=== PATIENT | female | born 1945 | race Caucasian/White ===

== ENCOUNTER 2017-09-22 19:33 | Emergency (ER) | payer MEDICARE, OTHER, SELFPAY ==
[2017-09-22 19:34] VITALS: BP 164/82; PULSE 87; RESP 20; TEMP 36.4; O2SAT 100; BMI 20.5
--- NOTE | 2017-09-22 19:48 | ED.VISSUMM ---
- ER Visit Summary Date of Service: 09/22/17 Chief Complaint: Nosebleed History of Present Illness: The patient is a 71 F presents to the emergency department with nosebleed. Patient has a history of COPD. She is on 2-1/2 L of nasal cannula at baseline. Over the past week, she has had 3 separate nosebleeds from the right naris. She states the first 2 were very slight and stopped almost immediately. Tonight, began to bleed. She held pressure but still had some bleeding. She does take a baby aspirin but no other anticoagulants. She has no other prior history of nosebleed. States up until today she felt fine. She has had no upper respiratory illness. She denies cough or shortness of breath. Physical Examination: Exam is relatively unremarkable. Patient does have active bleeding from Kiesselbach's plexus in the right nares. There is no evidence of posterior bleed. Oropharynx is widely patent. Neck supple. Heart regular. Lungs clear. Test Results: [] Emergency Department Course and Treatment: Afrin-soaked pledget was placed in the right nares. Compression was held for 15 minutes. I did reevaluate the area. I attempted silver nitrate cautery of the area of bleeding. I was unable to achieve hemostasis. Because of this, I did elect to place a 5.5 cm anterior Rhino Rocket. The patient did have good control bleeding initially with this. The patient was observed. She had no further bleeding. The patient was placed on Keflex and given outpatient ENT follow-up. She will return with any worsening bleeding. Treatment Plan: [] Disposition: Discharge Impression: 1. Epistaxis right naris with packing This note was generated with [employer] dictation software. It may contain incorrect words, spelling, and punctuation that were not noted in review of the chart prior to signing ED Disposition - Plan for ED Patient: Disposition: Home or Assisted Living Chief Complaint: Nosebleed Instructions: Nosebleed Prescriptions: Cephalexin [Keflex] 500 mg PO Q8 #15 cap Referrals: Hussein Orellana MD [STAFF PHYSICIAN] -
[2017-09-22 21:45] VITALS: PULSE 72; RESP 16; O2SAT 98
[2017-09-22] MEDS: Oxymetazoline 0.05% 1 SPRAY SPRAY.BTL 2 SPRAY NASAL (21:45)
[2017-09-22] MEDS: Silver Nitrate (BKC) 1 EACH TOPICAL (21:45)
== END 2017-09-22 21:47 | disposition home or self-care (01) ==
LOC: ED 19:56
PROVIDERS: Emergency Provider Emergency Medicine; Family Provider Internal Medicine; PCP Internal Medicine
DX: R04.0 Epistaxis (principal); J44.9 Chronic obstructive pulmonary disease, unspecified; I10 Essential (primary) hypertension; E78.00 Pure hypercholesterolemia, unspecified; F32.9 Major depressive disorder, single episode, unspecified; Z87.891 Personal history of nicotine dependence; Z79.82 Long term (current) use of aspirin; Z79.899 Other long term (current) drug therapy
CPT/HCPCS: 30903; 99281; A4216

== ENCOUNTER 2017-10-28 11:14 | Emergency (ER) | payer MEDICARE, OTHER, SELFPAY ==
[2017-10-28 11:16] VITALS: BP 189/99; PULSE 80; PULSE 82; RESP 14; TEMP 36.9; O2SAT 98; BMI 23.8
--- NOTE | 2017-10-28 11:25 | RAD_ITS ---
STUDY: X-RAY - RIGHT ANKLE REASON FOR EXAM: Female, 71 years old. Pain following a fall. TECHNIQUE: 3 view(s) of the ankle. COMPARISON: None. FINDINGS: Healed fracture of the distal fibula. Normal medial and lateral malleoli. Normal tibiotalar articulation and ankle mortise. Osteopenia. Normal visualized talus and calcaneus. The visualized subtalar, talonavicular, calcaneocuboid and tarsal articulations are normal. Soft tissue swelling overlying the lateral malleolus. No acute fractures seen. RAD/Ankle min 3 Views IMPRESSION: No acute abnormalities present. Electronically Signed: Gus Brito MD at 11:54 EDT Tel [phone], Service support ,
--- NOTE | 2017-10-28 11:29 | ED.VISSUMM ---
- ER Visit Summary Date of Service: 10/28/17 Chief Complaint: Injury right lower extremity History of Present Illness: The patient is a 71 F who presents after a mechanical fall. She normally needs assistance to ambulate. Her aide had not arrived or scheduled visit. She attempted to get up from her bed and walk to the restroom. She fell. Her only complaint is right foot pain. She has no other complaints. Please read written note Physical Examination: Vital signs are noted. There is no evidence of trauma to the head. She has no pain the patient cervical spine. Heart is regular without murmur, gallop or rub. S1 and S2 are normal. Lungs are clear to auscultation with good movement of air bilaterally. Logrolling of the right and left lower extremity causes no discomfort. She is able to flex at the hip and knee and extend 280? of the knee and flex to 90? on the right side. There is pain the patient of lateral malleolus with evidence of trauma. There is no pain the probation base of the fifth metatarsal. DP pulses palpable. Test Results: Two-view x-ray of the ankle reveals osteopenia. There is no evidence of fracture, subluxation etc. Emergency Department Course and Treatment: X-ray of the ankle was obtained to evaluate for fracture Treatment Plan: Patient declined pain medicine Disposition: Discharge to home with appropriate home-going instructions Impression: Right ankle sprain, anterior talofibular ligament This note was generated with [employer] dictation software. It may contain incorrect words, spelling, and punctuation that were not noted in review of the chart prior to signing ED Disposition - Plan for ED Patient: Disposition: Home or Assisted Living Chief Complaint: Fall Instructions: Treating Ankle Sprains Referrals: Brandon Wisdom MD [Primary Care Provider] - 10-14 Days if not better Additional Instructions: Take Tylenol for your discomfort. Elevate and apply ice 20-30 minutes at a time 6-8 times a day for the next 2-3 days.
== END 2017-10-28 12:20 | disposition home or self-care (01) ==
LOC: ED 12:06
PROVIDERS: Emergency Provider Emergency Medicine; Family Provider Internal Medicine; PCP Internal Medicine
DX: S93.491A Sprain of other ligament of right ankle, initial encounter (principal); W06.XXXA Fall from bed, initial encounter; Y93.89 Activity, other specified; Y92.003 Bedroom of unspecified non-institutional (private) residence as the place of occurrence of the external cause
CPT/HCPCS: 73610; 99284

== ENCOUNTER 2017-11-22 06:30 | Emergency (ER) | payer MEDICARE, OTHER, SELFPAY ==
--- NOTE | 2017-11-22 06:30 | DT_ITS ---
This patient was seen during an EMR downtime November 21, 2017 - November 28, 2017. This patient may have a combination of paper and electronic documentation or all paper documentation. All documentation is viewable within the e-chart portion of [employer] for each patient visit.
--- NOTE | 2017-11-22 07:10 | RAD_ITS ---
STUDY: X-RAY - RIGHT WRIST REASON FOR EXAM: Female, 71 years old. Pain after a fall TECHNIQUE: 3 view(s) of the wrist were obtained. COMPARISON: None. FINDINGS: The bones are diffusely demineralized. There are acute fractures in both the distal radius and ulna. The distal radial fracture shows impaction, and volar angulation. There is associated soft tissue swelling. The carpal bones maintain anatomic alignment with the distal radial fracture fragment. Because of the impacted nature of the radial fracture there is positive ulnar variance. Minimally displaced ulnar styloid fracture noted. 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 RAD/Wrist min 3 Views IMPRESSION: Diffuse osteopenia with acute fractures of both distal radius and ulna. The distal radial fracture shows impaction with volar angulation at the fracture site. There is diffuse soft tissue swelling and the carpal bones maintain anatomic alignment with the fracture fragment of the distal radius. Because of the impacted nature of the fracture there is positive ulnar variance. 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 Orthopedic surgery consultation recommended Electronically Signed: Fredrick Reinoso MD at 13:49 EDT , Service support ,
--- NOTE | 2017-11-22 08:10 | RAD_ITS ---
STUDY: X-RAY - RIGHT WRIST REASON FOR EXAM: Female, 71 years old. Fractures TECHNIQUE: 3 view(s) of the wrist were obtained. COMPARISON: Earlier today FINDINGS: Since the previous study, patient has undergone closed reduction of previously noted fractures in the distal radius and ulna. Both fractures sites show near-anatomic alignment after closed reduction. Follow-up recommended to assure complete osseous union. After reduction, there is evidence of mild widening of the scapholunate joint space suggesting there may be ligamentous injury. Otherwise there is stable intracarpal arthrosis, and again noted severe arthrosis at the base of the thumb with subluxation. RAD/Wrist 2 Views IMPRESSION: Near anatomic alignment of the distal radius and ulnar fractures after closed reduction. Fine bony detail is difficult due to overlying casting material. Follow-up recommended to assure complete osseous union After the reduction there is evidence of mild widening of the scapholunate joint space suggesting there may be ligamentous injury. 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
[2017-11-25 15:00] LABS: Hematocrit 36.4 % (37-47); Hemoglobin 11.5 g/dl (12.0-15.0); Mean Corpuscular Hgb 27.3 pg (27.0-32.0); Mean Corpuscular Volume 86.3 fL (81-99); Red Blood Count 4.22 M/mm3 (4.2-5.4); White Blood Count 11.1 K/mm3 (4.4-11.0)
[2017-11-25 15:01] LABS: Absolute Lymphocyte Count 1.48 X10^3/ul (0.83-4.51); Absolute Neutrophil Count 8.5 X10^3/uL (2.0-7.7); Basophil# 0.04 X10^3/uL; Basophil% 0.4 % (0-1); Eosinophils% 2.7 % (0-5); Lymphocyte # 1.48 X10^3/ul (4.0); Lymphocyte % 13.4 % (19-41); Mean Corp Hgb Conc 31.6 g/gl (32-36); Monocyte% 6.3 % (0-10); Neutrophil # 8.51 X10^3/uL (2.7-7.7); Neutrophil % 76.9 % (47-70); POSITIVE COUNT NO; POSITIVE DIFFERENTIAL NO; POSITIVE MORPHOLOGY NO; Platelet Count 277 K/mm3 (150-450); RBC Distribution Width CV 12.8 % (11.6-14.6); RBC Distribution Width SD 39.9 fl (35.1-43.9)
== END 2017-11-22 11:20 | disposition home or self-care (01) ==
LOC: ED 11-23 16:50
PROVIDERS: Emergency Medicine; Emergency Provider Emergency Medicine; Family Provider Internal Medicine; PCP Internal Medicine
DX: S52.501A Unspecified fracture of the lower end of right radius, initial encounter for closed fracture (principal); S52.601A Unspecified fracture of lower end of right ulna, initial encounter for closed fracture; W19.XXXA Unspecified fall, initial encounter; Y93.9 Activity, unspecified; Y92.9 Unspecified place or not applicable; F03.90 Unspecified dementia, unspecified severity, without behavioral disturbance, psychotic disturbance, mood disturbance, and anxiety; Z85.118 Personal history of other malignant neoplasm of bronchus and lung; J44.9 Chronic obstructive pulmonary disease, unspecified
CPT/HCPCS: 25605; 73100; 73110; 85025; 96374; 99285; J7030; A4216